=== PATIENT | female | born 1975 | race Caucasian/White ===

== ENCOUNTER 2020-12-05 16:22 | Emergency (ER) | payer OTHER ==
[~2020-12-05] VITALS: Ht 152.4 cm; Wt 90.5 kg
[2020-12-05 16:51] LABS: BASOPHILS % (AUTO) 1 % (0-1); EOSINOPHILS % (AUTO) 1 % (1-7); LYMPHOCYTES % (AUTO) 13 % (22-44); MEAN CORPUSCULAR HEMOGLOBIN 29.5 pg (27.0-34.8); MEAN CORPUSCULAR HGB CONC 33.6 g/dL (32.4-35.8); MEAN PLATELET VOLUME 9.3 fL (7.4-10.4); MONOCYTES % (AUTO) 4 % (2-9); NEUTROPHILS % (AUTO) 81 % (42-75); PLATELET COUNT 356 x10^3/uL (130-400); RED BLOOD COUNT 5.07 x10^6/uL (3.82-5.3); RED CELL DISTRIBUTION WIDTH 14.4 % (9.6-15.2)
[2020-12-05 17:02] LABS: ALANINE AMINOTRANSFERASE 21 U/L (12-78); ALBUMIN 4.2 g/dL (3.4-5.0); ANION GAP 8 mmol/L (5-15); CALCIUM 9.5 mg/dL (8.5-10.1); CHLORIDE 106 mmol/L (98-107); CREATININE 0.94 mg/dL (0.55-1.02)
[2020-12-05 17:06] LABS: ALKALINE PHOSPHATASE 61 U/L (45-117); BILIRUBIN,TOTAL 0.7 mg/dL (0.2-1.0); TOTAL PROTEIN 8.3 g/dL (6.4-8.2)
--- NOTE | 2020-12-05 19:35 | NUR ---
pt to room from lobby, states pain is intermittent, denies n/v. states she is not having pain at this time. pt ambuated to restroom for ua
[2020-12-05 20:15] LABS: MICROSCOPIC INDICATED
[2020-12-05 20:18] LABS: TROPONIN I < 0.015 ng/mL (0.000-0.045)
[2020-12-05 21:18] VITALS: BP 106/63
== END 2020-12-05 21:26 | disposition home or self-care (01) ==
LOC: ED 21:20
DX: R31.29 Other microscopic hematuria (principal); R10.12 Left upper quadrant pain; E11.9 Type 2 diabetes mellitus without complications; R94.31 Abnormal electrocardiogram [ECG] [EKG]
CPT/HCPCS: 36415; 74176; 80053; 81001; 83690; 84484; 84703; 85025; 87086; 93005; 99285